=== PATIENT | male | born 1995 | race Two or more races ===

== ENCOUNTER 2018-06-04 05:01 | Emergency (ER) | payer OTHER ==
[~2018-06-04 05:01] MED LIST: AMOX-362 PO
[2018-06-04] MEDS ORDERED: KETOROLAC 30 MG/ML VIAL IVP ONE (05:25)
[2018-06-04] MEDS ORDERED: ONDANSETRON 4 MG/2 ML VIAL IVP ONE (05:25)
[2018-06-04] MEDS ORDERED: KET10 PO (05:36)
[2018-06-04] MEDS ORDERED: ONDA4TAB PO (05:36)
--- NOTE | 2018-06-04 05:37 | ER Report ---
History and Physical Time Seen By MD: 05:10 Hx. of Stated Complaint: ABDOMINAL PAIN AND NAUSEA FOR TWO NIGHTS HPI/ROS CHIEF COMPLAINT: Abdominal pain HISTORY OF PRESENT ILLNESS: 22-year-old male presents with epigastric pain since last night after eating at [employer]. He's had severe nausea but no vomiting. He denies diarrhea. He denies radiation of the pain. He denies any exacerbating or alleviating factors. Past medical history or previous abdominal surgery. REVIEW OF SYSTEMS: Respiratory: No cough, no dyspnea. Cardiovascular: No chest pain, no palpitations. Gastrointestinal: As above Musculoskeletal: No back pain. Allergies: Coded Allergies: No Known Drug Allergies (Unverified , 06/04/18) Home Meds Active Scripts Ketorolac Tromethamine (KETOROLAC TROMETHAMINE) 10 Mg Tab, 10 MG PO Q6H PRN for PAIN, #10 TAB TAKE ONE TABLET BY MOUTH EVERY SIX HOURS FOR PAIN Prov:MORIAH WILKINSON DO 06/04/18 Ondansetron (ZOFRAN ODT) 4 Mg Tab.rapdis, 4 MG PO every 6 hours PRN for NAUSEA/VOMITING, #10 TAB TAKE 1 TABLET BY MOUTH EVERY 12 HOURS Prov:MORIAH WILKINSON DO 06/04/18 Discontinued Scripts Amoxicillin (AMOXICILLIN) 500 Mg Capsule, 1 CAP PO Q8H for ear infection, #30 CAPSULE 0 Refills Prov:ETHAN BOOGIE MD 08/22/16 Smoking Status: Never Smoker Hx Substance Use Disorder: No Hx Alcohol Use: No Constitutional Vital Sign - Last 24 Hours 06/04/18 06/04/18 06/04/18 06/04/18 05:01 05:05 05:08 05:16 Temp 97.8 Pulse ??? 63 60 Resp 12 B/P (MAP) 162/95 162/95 (117) Pulse Ox 93 95 O2 Delivery Room Air 06/04/18 06/04/18 06/04/18 06/04/18 05:30 05:31 05:46 05:56 Pulse 63 72 B/P (MAP) 120/83 (95) 120/83 (95) Pulse Ox 94 93 06/04/18 06/04/18 06/04/18 06:00 06:01 06:16 Pulse 68 ??? B/P (MAP) 121/79 (93) Pulse Ox 94 Physical Exam General Appearance: The patient is alert, has no immediate need for airway protection and no current signs of toxicity. Vital signs stable, afebrile, pulse ox normal, mild elevation of blood pressure Eyes: Pupils equal and round no injection. Respiratory: Chest is non tender, lungs are clear to auscultation. Cardiac: regular rate and rhythm Gastrointestinal: Abdomen is soft and non tender, no masses, bowel sounds normal. Musculoskeletal: Neck: Neck is supple and non tender. No lymphadenopathy Extremities have full range of motion and are non tender. Skin: No rashes or lesions. DIFFERENTIAL DIAGNOSIS: After history and physical exam differential diagnosis was considered for abdominal pain including but not limited to appendicitis, cholecystitis, gastritis, enteritis, food poisoning, viral syndrome and urinary tract infection. Medical Decision Making ED Course/Re-evaluation Clinical Indication for ER IV: IV Access ED Course Patient was admitted to an examination room. H&P was done. The dental diagnoses was considered. On clinical examination. Patient has a benign surgical abdomen. He has had no vomiting. No diarrhea. I think that he suffering food poisoning from eating at [employer] last night. He is treated with Toradol and Zofran IV. He reports feeling much better. I advised him. A clear liquid diet and stomach rest. He is given prescriptions for Zofran and ketorolac. He is advised to follow-up with primary care or student health if unimproved in 3-5 days. Decision to Disposition Date: Jun 04, 2018 Decision to Disposition Time: 05:34 Depart Departure Latest Vital Signs Vital Signs Date Time Temp Pulse Resp B/P (MAP) Pulse Ox O2 Delivery O2 Flow Rate FiO2 06/04/18 06:16 ??? 06/04/18 06:01 94 06/04/18 06:00 121/79 (93) 06/04/18 05:05 97.8 12 Room Air Impression: Primary Impression: Food poisoning Additional Impressions: Abdominal pain Nausea Condition: Improved Disposition: HOME OR SELF-CARE Referrals: OREN LEBLANC MD (PCP) New Scripts Ketorolac Tromethamine (KETOROLAC TROMETHAMINE) 10 Mg Tab 10 MG PO Q6H PRN for PAIN, #10 TAB TAKE ONE TABLET BY MOUTH EVERY SIX HOURS FOR PAIN Prov: MORIAH WILKINSON DO 06/04/18 Ondansetron (ZOFRAN ODT) 4 Mg Tab.rapdis 4 MG PO every 6 hours PRN for NAUSEA/VOMITING, #10 TAB TAKE 1 TABLET BY MOUTH EVERY 12 HOURS Prov: MORIAH WILKINSON DO 06/04/18 Patient Instructions: Clear Liquid Diet (ED), Food Poisoning (ED) Additional Instructions: Follow clear liquid diet for 24-48 hours and advance to the brat diet, bananas, rice, applesauce and toast Avoid fatty food, greasy foods, vegetables and dairy for at least 24 hours more likely 48 hours Follow-up with primary care or student health if unimproved in 3-5 days. Problem Qualifiers Primary Impression: Food poisoning Encounter type: initial encounter Injury intent: accidental or unintentional Qualified Codes: T62.91XA - Toxic effect of unspecified noxious substance eaten as food, accidental (unintentional), initial encount er Additional Impressions: Abdominal pain Abdominal location: epigastric Qualified Codes: R10.13 - Epigastric pain MORIAH WILKINSON DO Jun 04, 2018 05:36
[2018-06-04 06:00] VITALS: BP 121/79
== END 2018-06-04 06:13 | disposition home or self-care (01) ==
LOC: ER 05:26
DX: T62.91XA Toxic effect of unspecified noxious substance eaten as food, accidental (unintentional), initial encounter (principal)
CPT/HCPCS: 96374; 96375; J1885; J2405